=== PATIENT | female | born 1960 | race African-American/Black ===

== ENCOUNTER 2017-11-14 12:22 | Emergency (ER) | payer MEDICAID ==
[~2017-11-14] VITALS: Ht 157.5 cm; Wt 63.5 kg
[2017-11-14 12:36] VITALS: BP_SYST 183
[2017-11-14] MEDS ORDERED: MECLIZINE HCL 25 MG TABLET (ANITVERT) PO ONE (13:45)
[2017-11-14 15:40] VITALS: BP_SYST 136
== END 2017-11-14 15:40 | disposition home or self-care (01) ==
LOC: SED 12:22
DX: R42 Dizziness and giddiness (principal); R03.0 Elevated blood-pressure reading, without diagnosis of hypertension
CPT/HCPCS: 70450; 93005; 99284; J8597

== ENCOUNTER 2018-02-20 15:11 | Emergency (ER) | payer MEDICAID ==
[~2018-02-20] VITALS: Ht 160 cm; Wt 66.2 kg
[2018-02-20 15:11] VITALS: BP_SYST 132
--- NOTE | 2018-02-20 15:20 | NUR ---
Patient triaged and placed in waiting room. VSS and patient appears in no acute distress at this time. Accompanied by FAMILY, awaiting available bed, and MD notified of need for MSE.
--- NOTE | 2018-02-20 16:40 | NUR ---
BROUGHT BACK TO BED #3 AND REPORT GIVEN TO GREGORIO
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
--- NOTE | 2018-02-20 16:45 | NUR ---
ER Dr. Granados at bedside examining patient.
[2018-02-20] MEDS ORDERED: KETOROLAC TROMETHAMINE 30 MG VIAL IVP ONE (17:00)
--- NOTE | 2018-02-20 17:28 | NUR ---
Medication was given, pt tolerated well. No adverse reaction, will continue to monitor.
[2018-02-20 17:46] LABS: BILIRUBIN,URINE NEGATIVE (NEGATIVE); CLARITY/URINE CLEAR (CLEAR); COLOR,URINE YELLOW (YELLOW); GLUCOSE,URINE NEGATIVE (NEGATIVE); KETONES,URINE NEGATIVE (NEGATIVE); LEUKOCYTE ESTERASE ,URINE 1+ (NEGATIVE); NITRITE, URINE NEGATIVE (NEGATIVE); PH,URINE 5.5 (5.0-8.0); PROTEIN URINE NEGATIVE (NEGATIVE); UROBILINOGEN,URINE 0.2 (0.2-1.0)
[2018-02-20 17:50] LABS: BLOOD, URINE TRACE (NEGATIVE)
[2018-02-20] MEDS ORDERED: cefTRIAXone 1 GM in D5W 50 ML IV ONE (18:15)
[2018-02-20 18:17] LABS: BACTERIA,URINE RARE /HPF (None Seen); RBC,URINE 0-3 /HPF (0-3); WBC,URINE 0-3 /HPF (0-3)
[2018-02-20] MEDS ORDERED: cefTRIAXone 1 GM VIAL ONE (18:21)
--- NOTE | 2018-02-20 18:25 | NUR ---
Medication was given, pt tolerated well. No adverse reaction, will continue to monitor.
[2018-02-20 19:13] VITALS: BP_SYST 128
--- NOTE | 2018-02-20 19:13 | NUR ---
Patient given written and verbal discharge instructions and verbalizes understanding. ER MD discussed with patient the results and treatment provided. Patient in stable condition. ID arm band removed. IV catheter removed intact and dressing applied, no active bleeding. Rx of Tramadol and Motrin given. Patient educated on pain management and to follow up with PMD. Pain Scale 2. Opportunity for questions provided and answered. Medication side effect fact sheet provided.
== END 2018-02-20 19:13 | disposition home or self-care (01) ==
LOC: SED 15:11
DX: S33.5XXA Sprain of ligaments of lumbar spine, initial encounter (principal); N39.0 Urinary tract infection, site not specified; R03.0 Elevated blood-pressure reading, without diagnosis of hypertension; X58.XXXA Exposure to other specified factors, initial encounter; Y93.89 Activity, other specified; Y92.89 Other specified places as the place of occurrence of the external cause; Y99.8 Other external cause status
CPT/HCPCS: 71046; 81000; 81025; 87086; 93005; 96365; 96375; 99285; J0696; J1885